=== PATIENT | male | born 1945 | race Caucasian/White ===

== ENCOUNTER 2023-05-29 06:43 | Outpatient (RCR) | payer MEDICARE, BC, SELFPAY | END 2023-05-29 23:59 | disposition home or self-care (01) | LOC: CRHB 06:43 | PROVIDERS: ATTENDING PHYSICIAN Internal Medicine Cardiovascular Disease | DX: I25.10 Atherosclerotic heart disease of native coronary artery without angina pectoris (principal); Z95.5 Presence of coronary angioplasty implant and graft | CPT/HCPCS: G0422; G0423 ==

== ENCOUNTER 2023-06-26 07:06 | Outpatient (RCR) | payer MEDICARE, BC, SELFPAY | END 2023-06-26 23:59 | disposition home or self-care (01) | LOC: CRHB 07:06 | PROVIDERS: ATTENDING PHYSICIAN Internal Medicine Cardiovascular Disease | DX: I25.10 Atherosclerotic heart disease of native coronary artery without angina pectoris (principal); Z95.5 Presence of coronary angioplasty implant and graft | CPT/HCPCS: 36415; 80061; G0422 ==

== ENCOUNTER 2023-07-08 07:00 | Outpatient (RCR) | payer MEDICARE, BC, SELFPAY | END 2023-07-08 23:59 | disposition home or self-care (01) | LOC: CRHB 07:00 | PROVIDERS: ATTENDING PHYSICIAN Internal Medicine Cardiovascular Disease | DX: Z95.5 Presence of coronary angioplasty implant and graft (principal) | CPT/HCPCS: G0422; G0423 ==